=== PATIENT | female | born 1955 | race Hispanic/Latino ===

== ENCOUNTER → 2018-09-28 | Day surgery (SDC) | payer BC ==
[2018-09-26 17:23] LABS: BASOPHILS # (AUTO) 0.1 (0.0-0.1); BASOPHILS % 0.9 % (0.0-1.0); EOSINOPHILS # (AUTO) 0.3 (0.0-0.4); EOSINOPHILS % 3.9 % (0.0-6.0); HEMATOCRIT 36.7 % (34.2-44.1); HEMOGLOBIN 12.6 g/dL (12.0-16.0); LYMPHOCYTES # (AUTO) 2.4 (1.0-3.2); LYMPHOCYTES % 32.7 % (18.0-39.1); MEAN CORPUSCULAR HEMOGLOBIN 32.4 pg (28-32); MEAN CORPUSCULAR HGB CONC 34.3 g/dL (31-35); MEAN CORPUSCULAR VOLUME 94.3 fL (81-99); MONOCYTES # (AUTO) 0.4 (0.2-0.8); MONOCYTES % 5.8 % (4.4-11.3); NEUTROPHILS # (AUTO) 4.2 (2.1-6.9); NEUTROPHILS % 56.4 % (38.7-80.0); PLATELET COUNT 229 x10e3/uL (140-360); RED BLOOD COUNT 3.89 x10e6/uL (3.6-5.1); RED CELL DISTRIBUTION WIDTH 11.9 % (11.7-14.4)
--- NOTE | 2018-09-26 17:28 | Diagnostic Imaging Report ---
EXAM: XR CHEST 2 VIEWS DATE: 09/26/2018 4:44 PM INDICATION: Preop, pain, knee surgery COMPARISON: None FINDINGS: Lines and Tubes: None Heart and Mediastinum: No acute cardiomediastinal findings. Lungs and Pleura: No significant pleural effusion, pneumothorax, or focal consolidation. Bones and Soft Tissues: No acute findings. IMPRESSION: 1. No acute cardiopulmonary findings. Signed by: Dr. Jhonatan Appiah MD on 09/26/2018 5:25 PM
[~2018-09-28] MED LIST: BUPIVACAINE 0.5%/EPI 30 ML SDV INJ ONE; BUSPIRONE HCL5 MG PO; CEFAZOLIN SOD 2 GM/D5W 50ML 50 ML IV ONE; DEXAMETHASONE SOD PHOS INJ 4 MG/ML VIAL ONE; ESTRADIOL1 MG PO; FENTANYL CITRATE/PF 100MCG/2 ML INJ ONE; KETOROLAC TROMETHAMINE 30 MG/ML VIAL ONE; LEVOTHYROXINE75 MCG PO; LIDOCAINE HCL 2% LOCAL INJ 5 ML SDV VIAL INJ ONE; MIDAZOLAM HCL 2 MG/2 ML VIAL ONE; ONDANSETRON HCL INJ 2MG/ML 2ML 2 MG/ML VIAL ONE; PROPOFOL IV EMULSION 10 MG/ML 20 ML VIAL ONE; SEVOFLURANE INHAL SOLN 250 ML PEN BTL ONE; VESICARE10 MG
--- OUTSIDE RECORDS SUMMARY | 2018-09-28 09:55 | XMS REPORT | Continuity of Care Document ---
Author Author [facility] Interface Address Unknown Phone Unavailable Problems Problem Status Onset Date Classification Date Reported Comments Source Allergic rhinitis 08/02/2016 Diagnosis 08/02/2016 [facility] Allergic Rhinitis Problem 08/02/2016 [facility] Medications Medication Details Route Status Patient Instructions Ordering Provider Order Date Source Estradiol 0.5 MG Oral Tablet estradiol 0.5 mg tablet TAKE ONE (1) TABLET(S) BY MOUTH ONCE A DAY. Active [facility] Fluticasone propionate 0.05 MG/ACTUAT Metered Dose Nasal [place] fluticasone 50 mcg/actuation nasal spray,suspension [place] 2 sprays each nostril EVERY DAY by intranasal route. Active [facility] Levothyroxine Sodium 0.075 MG Oral Tablet levothyroxine 75 mcg tablet Active [facility] solifenacin succinate 10 MG Oral Tablet [Vesicare] Vesicare 10 mg tablet TAKE ONE (1) TABLET(S) BY MOUTH ONCE A DAY. Active [facility] Ergocalciferol 32807 UNT Oral Capsule Vitamin D2 50,000 unit capsule Active [facility] Allergies, Adverse Reactions, Alerts Substance Category Reaction Severity Reaction type Status Date Reported Comments Source Immunizations Immunization Date Given Site Status Last Updated Comments Source Results Order Name Results Value Reference Range Date Interpretation Comments Source RESULT negative 08/02/2016 [facility] SWAB LOCATION Left and Right tonsillar pillars 08/02/2016 [facility] Vital Signs Vital Sign Value Date Comments Source Diastolic (mm Hg) 70 08/02/2016 [facility] Height 64 08/02/2016 [facility] Systolic (mm Hg) 120 08/02/2016 [facility] Weight 156 08/02/2016 [facility] Encounters Location Location Details Encounter Type Encounter Number Reason For Visit Attending Provider ADM Date DC Date Status Source [place] - [facility] - [id number] PAVEL GuajardoP: [address] [place] [address], Ph. [id number] Antonio Cohen 08/02/2016 [facility] Procedures Procedure Code Date Perfomer Comments Source
--- OUTSIDE RECORDS SUMMARY | 2018-09-28 09:55 | XMS REPORT | Encounter Summary ---
Author Organization Unknown Address [address] [place] [id number] Phone [phone] Reason for Visit Medical Complaint; sore thoat, congestion and coughing since last week Instructions 1. Allergic rhinitis rapid strep group A, throat fluticasone 50 mcg/actuation nasal spray,suspension allergies: care instructions Discussion Note Drink plenty of fluids to stay hydrated. Avoid known allergens. If you are not certain what is causing your allergies, see your PCP to see if you need allergy testing. Take medication(s) as prescribed for the indicated length of time. If no improvement in 3-5 days, or if new or worsening symptoms develop, follow up with a primary care physician. Plan of Care Patient Instructions See handout Reminders Provider Appointments None recorded. Lab Rapid Strep Group a, Throat 08/02/2016 [facility] Referral None recorded. Procedures None recorded. Surgeries None recorded. Imaging None recorded. Medications Name Start Date estradiol 0.5 mg tablet TAKE ONE (1) TABLET(S) BY MOUTH ONCE A DAY. fluticasone 50 mcg/actuation nasal spray,suspension [place] 2 sprays each nostril EVERY DAY by intranasal route. levothyroxine 75 mcg tablet Vesicare 10 mg tablet TAKE ONE (1) TABLET(S) BY MOUTH ONCE A DAY. Vitamin D2 50,000 unit capsule Medications Administered None recorded. Vitals Height Weight BMI Blood Pressure 5 ft 4 in 156 lbs 26.8 120/70 Lab Results Date Name Result Description Value Range Status Rapid Strep Group a, Throat Result negative Swab Location Left and Right tonsillar pillars Allergies Name Reaction Severity Onset NKDA Problems Name Status Onset Date Source Allergic Rhinitis Active Encounter Procedures None recorded. Vaccine List None recorded. Social History Smoking Status Never Smoker Past Encounters 08/02/2016 Allergic Rhinitis ANDREW Guajardo: [id number] [place] [address], Ph. History of Present Illness Irsyh-[id number]-Veiqfkx Reported By: Patient HPI: Location: head/sinuses. Quality: productive cough, sore throat, nasal/sinus congestion. Duration: 10days. Context: no sick contacts, no foreign travel, non-smoker. Modifying factors: OTC medication. Associated Symptoms: no sputum production, no shortness of breath, no wheezing, no change in number of pillows needed to sleep at night, no sweats, no significant weight gain, no significant weight loss, no vomiting, no diarrhea, no rash, no nausea, no fever, no muscle aches, no headache, morning cough, sore throat Review of Systems Basic Reported By: Patient Physical Exam Adult Basic Constitutional: General Appearance: healthy-appearing, well-nourished, well-developed. Level of Distress: NAD. Ambulation: ambulating normally Psychiatric: Mental Status: active and alert. Orientation: to time, to place, to person Eyes: Lids and Conjunctivae: non-injected, no discharge, no pallor. Pupils: PERRLA. Corneas: grossly intact. Lens: clear. Sclerae: non-icteric. Vision: acuity grossly intact Bfq-Inid-Eelbe-Throat: Ears: no lesions on external ear, no outer ear tenderness, EACs clear, TMs clear. Hearing: no hearing loss. Nose: no lesions on external nose, nares patent, no septal deviation, nasal passages clear, no sinus tenderness, post nasal drip; Boggy turbinates. Lips, Teeth, and Gums: no mouth or lip ulcers, no bleeding gums, normal dentition. Oropharynx: moist mucous membranes, no erythema, no exudates, tonsils not enlarged Neck: Lymph Nodes: no cervical LAD, no supraclavicular LAD Lungs: Respiratory effort: no dyspnea, no tachypnea, no use of accessory muscles, no intercostal retractions. Auscultation: breath sounds normal Cardiovascular: Heart Auscultation: RRR, no murmurs Neurologic: Gait and Station: normal gait, normal station Skin: Inspection and palpation: no rash, no lesions, no ulcer, no abnormal nevi, no induration, no nodules, good turgor, no jaundice Back: Thoracolumbar Appearance: normal curvature
--- OUTSIDE RECORDS SUMMARY | 2018-09-28 09:55 | XMS REPORT ---
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 Allergies, Adverse Reactions, Alerts This patient has no known allergies or adverse reactions. Medications This patient has no known medications. Results Test Description Test Time Test Comments Text Results Atomic Results Result Comments CHEST 2 VIEWS 2018-09-26 17:24:00 [facility] [address] [address] Patient Name: SMILEY PAGAN MR #: [id number] : 1955 Age/Sex: 63/F Req #: [id number] Adm Physician: Ordered by: JOHNATHON BAXTER MD Report #: [id number] Location: OR Room/Bed: Procedure: [id number] DX/CHEST 2 VIEWS Exam Date: 09/26/18 Exam Time: 1710 REPORT STATUS: Signed EXAM: XR CHEST 2 VIEWS DATE: 09/26/2018 4:44 PM INDICATION: Preop, pain, knee surgery COMPARISON: None FINDINGS: Lines and Tubes: None Heart and Mediastinum: No acute cardiomediastinal findings. Lungs and Pleura: No significant pleural effusion, pneumothorax, or focal consolidation. Bones and Soft Tissues: No acute findings. IMPRESSION: 1. No acute cardiopulmonary findings. Signed by: Dr. Jhonatan Gaitan MD on 09/26/2018 5:25 PM Dictated By: JHONATAN GAITAN MD 172 Transcribed By: DYLAN on 09/26/181724 COPY TO: JOHNATHON BAXTER MD
[2018-09-28 15:30] VITALS: BP 122/66
--- NOTE | 2018-09-29 15:59 | Operative Report ---
DATE OF PROCEDURE: September 28, 2018 PREOPERATIVE DIAGNOSES 1. Right knee medial meniscus tear. 2. Right knee lateral meniscus tear. 3. 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 POSTOPERATIVE DIAGNOSES 1. Right knee medial meniscus tear. 2. Right knee lateral meniscus tear. 3. 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 PROCEDURES PERFORMED 1. Right knee examination under anesthesia. 2. Right knee arthroscopy. 3. Right knee partial medial meniscectomy. 4. Right knee partial lateral meniscectomy. 5. Right knee chondroplasties of the patella, the trochlea, the medial femoral condyle, the medial tibial plateau, the lateral femoral condyle and lateral tibial plateau. [employer] M[employer] WORKER: None. ANESTHESIA: General endotracheal intubation anesthesia. IV FLUIDS: Per the anesthesia record. DESCRIPTION OF PROCEDURE: Ms. Craft was taken to the operating room and placed in the supine position on the operating table. Following induction of general anesthesia as well as endotracheal intubation, the patient's right lower extremity was examined under anesthesia. She was found to have a mild effusion within the knee joint but an otherwise ligamentously stable knee. The patient's lower extremity was prepped and draped in standard surgical fashion. A 2-portal technique was used to provide this patient arthroscopic evaluation of the knee joint. Examination of the suprapatellar pouch, medial and lateral gutters found no evidence of loose bodies. There was, however, evidence of chondromalacia of the patellar and trochlear surfaces. The scope was advanced in the medial compartment. Examination of the medial compartment demonstrated a torn medial meniscus. There was also chondromalacia of the articulating surfaces. A combination of biting forceps and a motorized shaver were used to resect the torn portion of the meniscus. Chondroplasties of the medial femoral condyle and medial tibial plateau were performed at this time. The scope was advanced into the intercondylar notch. Anterior cruciate ligament was identified and found to be intact. Scope was advanced in the lateral compartment. Examination of the lateral compartment demonstrated a torn lateral meniscus. There was also chondromalacia of the articulating surfaces. A combination of biting forceps and motorized shaver was used to resect the torn portion of the meniscus. Chondroplasties of the lateral femoral condyle and lateral tibial plateau were performed at this time. The scope was advanced in the suprapatellar pouch, and chondroplasties of the patella and trochlea were performed. The knee was deflated of its sterile normal saline. Each of the portal sites were closed using 4-0 nylon suture. The portal sites as well as the knee itself were injected with 0.5% Marcaine with epinephrine. Sterile dressings were applied. The patient was awakened and taken to the postanesthesia care unit in stable condition. Job#: [id number]
== END | disposition home or self-care (01) ==
LOC: OR 09:53
PROVIDERS: ATTEND Specialist
DX: S83.241A Other tear of medial meniscus, current injury, right knee, initial encounter (principal); S83.281A Other tear of lateral meniscus, current injury, right knee, initial encounter; M22.41 Chondromalacia patellae, right knee; K21.9 Gastro-esophageal reflux disease without esophagitis; F41.9 Anxiety disorder, unspecified; X58.XXXA Exposure to other specified factors, initial encounter; Z01.810 Encounter for preprocedural cardiovascular examination; Z01.812 Encounter for preprocedural laboratory examination; Z01.818 Encounter for other preprocedural examination
CPT/HCPCS: 29880; 36415; 71046; 85025; 93005; J0690; J1100; J1885; J2001; J2250; J2405; J2704